=== PATIENT | female | born 1965 | race Caucasian/White ===

== ENCOUNTER 2018-03-05 08:54 | Outpatient (CLI) | payer BC ==
--- NOTE | 2018-03-05 10:52 | ULT ---
ULTRASOUND ABDOMEN COMPLETE: HISTORY: Generalized abdominal pain and elevated liver function tests in a 53-year-old female. TECHNIQUE: Christie-scale ultrasound evaluation of the liver, gallbladder, spleen, pancreas, common bile duct, kidne ys, abdominal aorta, and inferior vena cava (IVC). FINDINGS: The gallbladder has normal wall thickness and has no evidence of gallstones or sludge. The hepatic e chogenicity is diffusely increased, consistent with fatty liver. The kidneys have normal echogenicit y, and there is no hydronephrosis. There is no splenomegaly. There is no abdominal aortic aneurysm. No free fluid is identified. The inferior vena cava is visualized. The pancreas is visualized, al though ultrasound is relatively insensitive for pancreatic pathology compared to CT and MRI. There is no biliary dilation. The common duct caliber is 4 mm. IMPRESSION: 1) Hepatic steatosis. 2) Otherwise negative. marielle [] POS: SUSAN
== END 2018-03-05 08:55 | disposition home or self-care (01) ==
LOC: SCSULT 08:54
PROVIDERS: ATTEND Internal Medicine
DX: R10.84 Generalized abdominal pain (principal); R94.5 Abnormal results of liver function studies; K76.0 Fatty (change of) liver, not elsewhere classified
CPT/HCPCS: 76700

== ENCOUNTER 2018-05-04 07:30 | Outpatient (CLI) | payer BC | END 2018-05-04 07:31 | disposition home or self-care (01) | LOC: BICULT 07:30 | PROVIDERS: ATTEND Internal Medicine Gastroenterology | DX: Z12.11 Encounter for screening for malignant neoplasm of colon (principal); K75.81 Nonalcoholic steatohepatitis (NASH); R94.5 Abnormal results of liver function studies; K76.0 Fatty (change of) liver, not elsewhere classified | CPT/HCPCS: 76705 ==

== ENCOUNTER 2019-08-18 07:40 | Outpatient (CLI) | payer BC ==
--- NOTE | 2019-08-18 09:12 | ULT ---
HEPATIC ULTRASOUND WITH DOPPLER: Date: 08/18/19 HISTORY: Abnormal LFTs. FINDINGS: The liver demonstrates increased echogenicity consistent with fatty infiltration. The spleen is eric l in size measuring 10.3 cm. No gallstones, gallbladder wall thickening, or pericholecystic fluid see n. The common duct measures 4 mm in diameter. The pancreas is normal appearing. No free fluid is seen . There is normal flow and spectral waveforms in the hepatic, portal, and splenic vasculature. IMPRESSION: Fatty liver. POS: SUSAN
== END 2019-08-18 07:41 | disposition home or self-care (01) ==
LOC: ULT 07:40
PROVIDERS: ATTEND Internal Medicine Gastroenterology
DX: R94.5 Abnormal results of liver function studies (principal); K76.0 Fatty (change of) liver, not elsewhere classified
CPT/HCPCS: 76705

== ENCOUNTER 2020-07-12 14:52 | Outpatient (CLI) | payer BC ==
--- NOTE | 2020-07-12 15:12 | RAD ---
Exam: 5 view lumbar spine HISTORY: Low back pain. History of ruptured disc. COMPARISON: none FINDINGS: 5 lumbar type vertebra. Lumbar spine vertebral body height is maintained. No fracture. Mode rate loss of disc space height and osteophyte formation at L5-S1. No spondylolisthesis. No spondylolysis. Visually sacrum and bony pelvis are intact. IMPRESSION: 1. Moderate degenerative change lumbosacral junction. 2. No fracture.
== END 2020-07-12 14:53 | disposition home or self-care (01) ==
LOC: BICRAD 14:52
PROVIDERS: ATTEND Internal Medicine Rheumatology
DX: M54.5 Low back pain (principal); M47.817 Spondylosis without myelopathy or radiculopathy, lumbosacral region
CPT/HCPCS: 72110

== ENCOUNTER 2021-03-12 14:11 | Outpatient (CLI) | payer BC | END 2021-03-12 14:12 | disposition home or self-care (01) | LOC: EEG 14:11 | DX: Z00.00 Encounter for general adult medical examination without abnormal findings (principal); R41.0 Disorientation, unspecified; R41.842 Visuospatial deficit; R41.3 Other amnesia; E78.5 Hyperlipidemia, unspecified; F41.9 Anxiety disorder, unspecified; F32.9 Major depressive disorder, single episode, unspecified; G47.00 Insomnia, unspecified | CPT/HCPCS: 95816 ==

== ENCOUNTER 2024-10-13 15:31 | Outpatient (CLI) | payer BC | END 2024-10-13 15:32 | disposition home or self-care (01) | LOC: BICRAD 15:31 | PROVIDERS: ATTEND Internal Medicine Rheumatology | DX: M25.511 Pain in right shoulder (principal); M19.011 Primary osteoarthritis, right shoulder ==